=== PATIENT | female | born 1980 | race Caucasian/White ===

== ENCOUNTER 2017-01-20 04:55 | Emergency (ER) | payer OTHER ==
[~2017-01-20 04:55] MED LIST: CLARITHROMYCIN500 MG PO; DARVOCET-N 1001 TAB; MOTRIN800 MG PO; NORCO 5/325 TAB1 TAB PO; NORCO 5/3251 TAB PO
[2017-01-20 05:20] LABS: URINE BILIRUBIN NEGATIVE (NEG); URINE BLOOD LARGE (NEG); URINE GLUCOSE (UA) NEGATIVE (NEG); URINE KETONE NEGATIVE (NEG); URINE LEUKOCYTE ESTERASE POSITIVE (NEG); URINE NITRITE POSITIVE (NEG); URINE PROTEIN MODERATE (NEG)
[2017-01-20 05:21] LABS: URINE APPEARANCE CLOUDY; URINE COLOR YELLOW
[2017-01-20 05:55] LABS: URINE WBC FULL FIELD /[HPF] (0-5)
[2017-01-20 05:56] LABS: URINE BACTERIA 4+
[2017-01-20 05:59] LABS: BASO % 0.3 % (0-2); EOS % 2.2 % (0-7); EOSINOPHIL ABSOLUTE COUNT 0.2 tho/cmm (0.0-0.7); HCT-HEMATOCRIT 39.8 % (34.0-49.0); HGB-HEMOGLOBIN 13.5 gm/dl (12.0-15.5); IMMATURE GRANULOCYTES ABSOLUTE 0.05 tho/cmm (0-0.03); IMMATURE GRANULOCYTES PERCENT 0.5 % (0-0.3); LYMPH % 28.5 % (20-45); LYMPH ABSOLUTE COUNT 2.8 tho/cmm (0.8-4.5); MCH (MEAN CORPUSCULAR HGB) 31.5 pg (28.0-32.0); MCHC MEAN CORPUSCULAR HGB CONC 33.9 % (32.0-36.0); MEAN PLATELET VOLUME 10.9 cmc (9.4-12.4); MONO % 5.6 % (0-12); MONOCYTE ABSOLUTE COUNT 0.6 tho/cmm (0.0-1.2); NEUTROPHIL ABSOLUTE COUNT 6.2 tho/cmm (1.6-8.0); NEUTROPHIL-AUTOMATED 6.2 tho/cmm (1.6-8.0); NEUTROPHILS % 62.9 % (40-80); PLATELET COUNT 302 tho/cmm (150-450); RED BLOOD COUNT 4.28 mil/cmm (4.00-5.20); RED CELL DISTRIBUTION WIDTH 12.3 % (12.4-16.4); WHITE BLOOD COUNT 9.9 tho/cmm (4.0-10.0)
[2017-01-20 06:18] LABS: ANION GAP 11 mmol/L (0-20); BLOOD UREA NITROGEN 12 mg/dl (6-24); CALCIUM 8.7 mg/dl (8.5-10.5); CARBON DIOXIDE-VENOUS 25 mmol/L (22-32); CHLORIDE 107 mmol/l (96-110); CREATININE 0.73 mg/dl (0.50-1.10); GLUCOSE 104 mg/dL (70-110); SODIUM 138 mmol/L (135-145); eGFR VALUE FOR BLACK >90 mL/Min
[2017-01-20] MEDS ORDERED: KEFLEX500 M4 PO (07:02)
[2017-01-20] MEDS ORDERED: ZOFRAN4 M2 PO (07:03)
[2017-01-20] MEDS ORDERED: NORCO 5-325 TA1 EACH PO (07:16)
== END 2017-01-20 07:56 ==
LOC: EDMED 04:55
PROVIDERS: Emergency Medicine; Physician Assistant
DX: N10 Acute pyelonephritis (principal); Z90.49 Acquired absence of other specified parts of digestive tract; Z90.89 Acquired absence of other organs; F17.200 Nicotine dependence, unspecified, uncomplicated
CPT/HCPCS: J0696; J1885; J2405; J7030